=== PATIENT | male | born 1985 | race Caucasian/White ===

== ENCOUNTER → 2024-09-05 | Outpatient (CLI) | payer BC, SELFPAY ==
[2024-09-05 18:41] LABS: Anion Gap 13 (5-15); BUN 16 mg/dL (4-19); BUN/Creat Ratio 14.2 RATIO (10-20); Calcium,Total 10.0 mg/dL (7.6-11.0); Carbon Dioxide 26.4 mmol/L (21.0-32.0); Chloride 101 mmol/L (98-108); Cholesterol 167 mg/dL (<=200); Glucose 91 mg/dL (70-99); Low Density Lipoprotein Calc. 74 mg/dL; Potassium 4.1 mmol/L (3.3-5.1); Triglycerides 60 mg/dL; Very Low Density Lipoprotein 12 mg/dL (5-40); cholesterol:hdl ratio screen 2.05
== END | disposition home or self-care (01) ==
LOC: MFPLAB 15:41
PROVIDERS: PCP Family Medicine; Referring Provider Family Medicine; Visit Provider Family Medicine
DX: Z00.00 Encounter for general adult medical examination without abnormal findings (principal)
CPT/HCPCS: 36415; 80048; 80061